=== PATIENT | male | born 2005 | race African-American/Black ===

== ENCOUNTER 2024-03-15 11:26 | Emergency (ER) | payer BC ==
[~2024-03-15] VITALS: Ht 170.2 cm; Wt 77.0 kg
[2024-03-15] MEDS ORDERED: MONT4TAB2 PO (11:32)
[2024-03-15] MEDS ORDERED: IBUP200C89 PO (11:32)
[2024-03-15] MEDS ORDERED: IBUP80TA PO (14:48)
[2024-03-15 15:20] VITALS: BP 131/80; TEMP 98.7; O2SAT 100
== END 2024-03-15 15:36 | disposition home or self-care (01) ==
LOC: M ED 11:26
DX: R07.89 Other chest pain (principal); E78.5 Hyperlipidemia, unspecified; F17.210 Nicotine dependence, cigarettes, uncomplicated; Z79.1 Long term (current) use of non-steroidal anti-inflammatories (NSAID)

== ENCOUNTER 2024-04-24 23:07 | Emergency (ER) | payer BC ==
[~2024-04-24] VITALS: Ht 170.2 cm; Wt 81.4 kg
[~2024-04-24 23:07] MED LIST: IBUP200C89 PO; IBUP80TA PO; MONT4TAB2 PO
[2024-04-24 23:10] VITALS: BP 142/76; TEMP 98.7; O2SAT 100
== END 2024-04-25 00:22 | disposition left against medical advice (07) ==
LOC: M ED 23:07
DX: Z53.21 Procedure and treatment not carried out due to patient leaving prior to being seen by health care provider (principal)

== ENCOUNTER 2024-04-25 11:13 | Emergency (ER) | payer BC | END 2024-04-25 11:39 | disposition left against medical advice (07) | LOC: M ED 11:13 | DX: Z53.21 Procedure and treatment not carried out due to patient leaving prior to being seen by health care provider (principal) ==